=== PATIENT | female | born 2000 | race Caucasian/White ===

== ENCOUNTER 2023-01-06 15:46 | Outpatient (OUT) | payer BC, SELFPAY ==
[2023-01-06 16:07] LABS: Basophils Percent Auto 0.7 % (0.2-2.0); Eosinophils Absolute Auto 0.2 10^3/uL (0.0-0.7); Eosinophils Percent Auto 3.1 % (0.9-7.0); Hemoglobin 12.9 g/dL (12.0-16.0); Immature Granulocytes Abs Auto 0.03 10^3/uL (0.00-0.03); Immature Granulocytes Pct Auto 0.5 % (0.0-0.5); Lymphocytes Absolute Auto 2.7 10^3/uL (1.2-3.8); Lymphocytes Percent Auto 43.5 % (20.5-60.0); Mean Corpuscular HGB Conc 32.3 g/dL (29.9-35.2); Mean Corpuscular Hemoglobin 27.5 pg (26.7-34.0); Mean Corpuscular Volume 85.3 fL (81.0-99.0); Mean Platelet Volume 9.8 fL (9.5-13.5); Monocytes Absolute Auto 0.5 10^3/uL (0.3-0.8); Monocytes Percent Auto 8.3 % (1.7-12.0); Neutrophils Absolute Auto 2.7 10^3/uL (1.4-6.5); Neutrophils Percent Auto 43.9 % (43.0-75.0); Platelet Count 256 10^3/uL (150-450); Red Blood Count 4.69 10^6/uL (4.20-5.40); Red Cell Distribution Width 13.4 % (11.0-15.0); White Blood Count 6.1 10^3/uL (4.0-11.0)
[2023-01-06 16:13] LABS: Estimated Average Glucose 111 mg/dL; Glycohemoglobin A1C 5.5 % (4.5-6.2)
[2023-01-06 17:27] LABS: Alanine Aminotransferase 53 U/L (14-59); Albumin Globulin Ratio 0.9; Albumin Level 3.4 g/dL (3.4-5.0); Alkaline Phosphatase 67 U/L (46-116); Anion Gap 11.3; Aspartate Amino Transferase 36 U/L (15-37); BUN Creatinine Ratio 17.4; Bilirubin Direct 0.1 mg/dL (0.0-0.2); Bilirubin Total 0.4 mg/dL (0.2-1.0); Carbon Dioxide 29.3 mmol/L (21.0-32.0); Chloride 103 mmol/L (98-107); Chol HDL Ratio 4.1; Cholesterol 154 mg/dL (<=200); Estimated GFR (African America >60 (>=60); Estimated GFR (Non-African Ame >60 (>=60); Globulin 3.7 g/dL; Glucose 100 mg/dL (74-106); HDL Cholesterol 38 mg/dL (40-60); Potassium 3.6 mmol/L (3.5-5.1); Sodium 140 mmol/L (136-145); Total Protein 7.1 g/dL (6.4-8.2); Triglycerides 134 mg/dL (<=150); VLDL CHOLESTEROL 26.8 mg/dL
== END 2023-01-06 15:47 | disposition home or self-care (01) ==
LOC: LAB 15:51
PROVIDERS: PCP Family Medicine; Visit Provider Family Medicine
DX: Z00.00 Encounter for general adult medical examination without abnormal findings (principal)
CPT/HCPCS: 36415; 80048; 80061; 80076; 83036; 84443; 85025

== ENCOUNTER 2023-04-14 09:21 | Outpatient (OUT) | payer BC, SELFPAY ==
--- OUTSIDE RECORDS SUMMARY | 2023-04-14 09:25 | XMS_ITS | CCD ---
Author Name Unknown Address [facility] [address] [place] [id number] Organization [facility] Care Team Providers Care Commercial Installer Name Role Phone CORNELIO LEWIS Admitting Unavailable CORNELIO LEWIS Attending Unavailable DR ABBIE SINGLETON Primary Care Unavailable GARRETT MO Consulting Unavailable ABBIE SINGLETON Attending Unavailable Problems Problem Classification Problem Date Documented Da te Episodic/Chronic Other ear and sense organ disorders (3 sources) Otalgia, left ear; Translations: [OTALGIA LEFT EAR] Onset: 04-06-2022 Episodic Other upper respiratory infections (1 source) Acute upper respiratory infection, unspecified; Translations: [ACUTE UP RESPIRATORY INFECTION UNS] Onset: 04-08-2022 Episodic Otitis media and related conditions (1 source) Otitis media, unspecified, left ear; Translations: [OTITIS MEDIA UNSPECIFIED LEFT EAR] Onset: 04-08-2022 Episodic Encounters Encounter Date Encounter Type Care Provider Facility Start: 04-01-2023 End: 04-02-2023 ambulatory ABBIE SINGLETON Not Available Start: 04-06-2022 End: 04-06-2022 ambulatory CORNELIO CARLOS . Facility: Payers Date Payer Category Payer Unknown [id number] [id number] [id number] 1980 Unknown [id number] [id number] 1959 Unknown [id number] Summary Purpose Family History No Family History Records FoundNo Family History Records Found Advance Directives No Advanced Directives Records FoundNo Advanced Directives Records Found Additional Source Comments INFORMATION SOURCE (unrecogn ized section and content) DATE CREATED AUTHOR 04/08/2022 [facility] DATE CREATED AUTHOR 'S ORGANIZ ATION 04/05/2023 [facility] EPIC FOR RECORDS PERTAINING TO PATIENTS WHO ARE OR HAVE BEEN ENROLLED IN A CHEMICAL DEPENDENCY/SUBSTANCEABUSE PROGRAM, SOME INFORMATION MAY BE OMITTED. This clinical summary was aggregated from multiple sources. Caution should be exercised in using it in the provision of clinical care. This summary normalizes information from multiple sources, and as a consequence, information in this document may materially change the coding, format and clinical context of patient data. In addition, data may be omitted in some cases. CLINICAL DECISIONS SHOULD BE BASED ON THE PRIMARY CLINICAL RECORDS. [employer] [facility]. provides no warranty or guarantee of the accuracy or completeness of information in this document.
[2023-04-14 09:57] LABS: Basophils Absolute Auto 0.1 10^3/uL (0.0-0.1); Basophils Percent Auto 0.7 % (0.2-2.0); Eosinophils Absolute Auto 0.2 10^3/uL (0.0-0.7); Hematocrit 39.4 % (36.0-48.0); Hemoglobin 12.7 g/dL (12.0-16.0); Immature Granulocytes Abs Auto 0.03 10^3/uL (0.00-0.03); Immature Granulocytes Pct Auto 0.3 % (0.0-0.5); Lymphocytes Absolute Auto 3.5 10^3/uL (1.2-3.8); Lymphocytes Percent Auto 40.6 % (20.5-60.0); Mean Corpuscular HGB Conc 32.2 g/dL (29.9-35.2); Mean Corpuscular Hemoglobin 27.5 pg (26.7-34.0); Mean Corpuscular Volume 85.5 fL (81.0-99.0); Mean Platelet Volume 9.8 fL (9.5-13.5); Monocytes Absolute Auto 0.6 10^3/uL (0.3-0.8); Monocytes Percent Auto 6.3 % (1.7-12.0); Neutrophils Absolute Auto 4.4 10^3/uL (1.4-6.5); Neutrophils Percent Auto 50.1 % (43.0-75.0); Platelet Count 310 10^3/uL (150-450); Red Blood Count 4.61 10^6/uL (4.20-5.40); Red Cell Distribution Width 13.1 % (11.0-15.0); White Blood Count 8.7 10^3/uL (4.0-11.0)
[2023-04-14 10:31] LABS: Free T4 0.77 ng/dL (0.76-1.46)
[2023-04-14 10:36] LABS: Alanine Aminotransferase 44 U/L (14-59); Albumin Globulin Ratio 0.9; Albumin Level 3.5 g/dL (3.4-5.0); Alkaline Phosphatase 86 U/L (46-116); Anion Gap 14.6; Aspartate Amino Transferase 26 U/L (15-37); BUN Creatinine Ratio 16.5; Bilirubin Direct 0.1 mg/dL (0.0-0.2); Bilirubin Total 0.3 mg/dL (0.2-1.0); Calcium 8.8 mg/dL (8.5-10.1); Carbon Dioxide 27.8 mmol/L (21.0-32.0); Chloride 103 mmol/L (98-107); Estimated GFR (African America >60 (>=60); Estimated GFR (Non-African Ame >60 (>=60); Glucose 102 mg/dL (74-106); Potassium 3.4 mmol/L (3.5-5.1); Sodium 142 mmol/L (136-145); Thyroid Stimulating Hormone 9.006 uIU/mL (0.358-3.740); Total Protein 7.5 g/dL (6.4-8.2)
[2023-04-15 04:08] LABS: FSH 8.3 mIU/mL (.); Luteinizing Hormone(LH) 9.4 mIU/mL (.); Progesterone <0.1 ng/mL (.); Testosterone 4 ng/dL (13-71)
== END 2023-04-14 09:22 | disposition home or self-care (01) ==
LOC: LAB 09:23
PROVIDERS: PCP Family Medicine; Visit Provider Family Medicine
DX: F41.1 Generalized anxiety disorder (principal)
CPT/HCPCS: 36415; 80048; 80076; 82627; 82670; 83001; 83002; 83525; 84144; 84403; 84439; 84443; 84481; 85025

== ENCOUNTER 2023-06-30 07:48 | Outpatient (OUT) | payer BC, SELFPAY ==
--- OUTSIDE RECORDS SUMMARY | 2023-06-30 07:56 | XMS_ITS | CCD ---
Author Organization [facility] Care Team Providers Care Manager Fitness Name Role Phone CORNELIO LEWIS Admitting Unavailable CORNELIO LEWIS Attending Unavailable DR ABBIE SINGLETON Primary Care Unavailable GARRETT MO Consulting Unavailable ABBIE SINGLETON Attending Unavailable ABBIE SINGLETON Attending Unavailable Problems Problem [...] Date Encounter Type Care Provider Facility Start: 06-23-2023 End: 06-23-2023 ambulatory ABBIE SINGLETON Not Available Start: 04-01-2023 End: 04-02-2023 ambulatory ABBIE SINGLETON Not Available Start: 04-06-2022 End: 04-06-2022 ambulatory CORNELIO CARLOS . Facility: Payers Date Payer Category Payer Unknown [id number] [id number] [id number] 1980 Unknown [id number] [id number] 1980 Unknown [id number] [id number] 1959 Unknown [id number] Summary Purpose Family History No Family History Records FoundNo Family History Records Found Advance Directives No Advanced Directives Records FoundNo Advanced Directives Records Found Additional Source Comments INFORMATION SOURCE (unrecogn ized section and content) DATE CREATED AUTHOR 04/08/2022 [facility] DATE CREATED AUTHOR AUTHOR'S BAN CH 06/24/2023 [facility] FOR RECORDS PERTAINING TO PATIENTS WHO ARE [...] BE BASED ON THE PRIMARY CLINICAL RECORDS. [facility] [employer] provides no warranty or guarantee of the accuracy or completeness of information in this document.
[2023-06-30 08:48] LABS: Free T3 3.03 pg/mL (2.18-3.98); Thyroid Stimulating Hormone 3.274 uIU/mL (0.358-3.740)
[2023-06-30 09:09] LABS: Free T4 0.83 ng/dL (0.76-1.46)
== END 2023-06-30 07:49 | disposition home or self-care (01) ==
LOC: LAB 07:49
PROVIDERS: PCP Family Medicine; Visit Provider Family Medicine
DX: E03.9 Hypothyroidism, unspecified (principal)
CPT/HCPCS: 36415; 84439; 84443; 84481

== ENCOUNTER 2024-04-05 16:31 | Emergency (ER) | payer BC, SELFPAY ==
[2024-04-05 16:58] VITALS: BP 130/98; PULSE 116; TEMP 38.8; O2SAT 97; BMI 50.9
[2024-04-05] MEDS: IBUPROFEN 400 MG TABLET 800 MG PO (17:15)
--- NOTE | 2024-04-05 17:22 | ED_ITS ---
HPI HPI - General Adult General Chief complaint: Fever Stated complaint: FEVER Time Seen by Provider: 04/05/24 16:57 Source: patient Mode of arrival: walk-in Limitations: no limitations History of Present Illness HPI narrative: Patient presents to ED complaining of sore throat body aches fevers and chills. She has had a slight cough as well. She has a temperature of 102 here. She said around 4:00 she took some NyQuil but otherwise has not taken any medication. She is here with 2 other family members that are sick with similar symptoms. She said she started on Wednesday and was pretty bad on Wednesday could not really get out of bed. She said she had bodyaches and mild cough fevers chills and headaches. She said it started with a little sore throat but that has improved and the sore throat is not really affecting her anymore. No abdominal pain nausea or vomiting. No diarrhea. No hypoxia. Patient is mildly tachycardic and febrile on arrival. Alert and oriented answering questions appropriately. Related Data Allergies Allergy/AdvReac Type Severity Reaction Status Date / Time No Known Drug Allergies Allergy Verified 04/05/24 16:58 Opioid HPI Opioid Management Most Recent Opioid Data: No Data to Display Review of Systems ROS Status of ROS 10 or more systems reviewed and unremark able except as noted in history and below PFSH PFSH Social History Little interest or pleasure in doing things: not at all Feeling down, depressed, or hopeless: not at all Exam Narrative Exam Narrative: Time Seen: [] Vital Signs: [Per nurse's notes.] General: [Alert] Skin: [Warm, dry, no rash.] Head: [Normocephalic, atraumatic.] Neck: [Supple, trachea midline.] Eye: [Pupils are equal, round and reactive to light, extraocular movements are intact, normal conjunctiva.] Ears, nose, mouth and throat: oral mucosa moist. Mild posterior pharynx erythema Cardiovascular: [Tachycardia, no murmur.] Respiratory: [Lungs are clear to auscultation, respirations are non-labored, breath sounds are equal.] Chest wall: [No tenderness, no deformity.] Gastrointestinal: [Soft, nontender, non distended, normal bowel sounds.] MSK: 5 out of 5 muscle strength x 4 extremities no calf pain or edema Lymphatics: [No lymphadenopathy.] Psychiatric: [Cooperative, appropriate mood & affect.] Neurological: [Alert and oriented to person, place, time, and situation, no focal neurological deficit observed.] Constitutional Vital Signs, click to edit/add: Last Vital Signs Temp 102 F H 04/05/24 16:58 Pulse 116 H 04/05/24 16:58 Resp 18 04/05/24 16:58 BP 130/98 H 04/05/24 16:58 Pulse Ox 97 04/05/24 16:58 O2 Del Method Room Air 04/05/24 16:58 Course Vital Signs Vital signs: Vital Signs Temperature 102 F H 04/05/24 16:58 Pulse Rate 116 H 04/05/24 16:58 Respiratory Rate 18 04/05/24 16:58 Blood Pressure 130/98 H 04/05/24 16:58 Pulse Oximetry 97 04/05/24 16:58 Oxygen Delivery Method Room Air 04/05/24 16:58 Temperature 102 F H 04/05/24 16:58 Pulse Rate 116 H 04/05/24 16:58 Respiratory Rate 18 04/05/24 16:58 Blood Pressure 130/98 H 04/05/24 16:58 Pulse Oximetry 97 04/05/24 16:58 Oxygen Delivery Method Room Air 04/05/24 16:58 Medical Decision Making MDM Narrative Medical decision making narrative: Patient's labs are negative for acute. No flu no COVID. Patient works around others and needs time off work. She has a viral syndrome and the rest of her family also has the same viral syndrome. She is feeling slightly better than she was Wednesday so she should be able to return to work after this week. Return to ED if worsening symptoms otherwise follow-up with family doctor. Take Tylenol and Motrin for the fever and bodyaches. Patient comfortable with care plan for home Differential Diagnosis Differential Diagnosis: Viral syndrome flu COVID Lab Data Lab results reviewed: Yes I reviewed the patient's lab results Labs: Lab Results 04/05/24 Range/Units 17:05 Influenza Type A Ag Negative Influenza Type B Ag Negative SARS-CoV-2 Ag (CV2AG) Negative (NEGATIVE) Discharge Plan Discharge Chief Complaint: Fever Clinical Impression: Viral infection Patient Disposition: Home, Self-Care Time of Disposition Decision: 17:46 Condition: Good Mode of Transportation: Private Vehicle Print Language: Ivorian Instructions: Viral Syndrome (ED) Referrals: Nura Nava MD [Primary Care Provider] - 1 week
[2024-04-05 17:24] LABS: Influenza Virus A Antigen Negative; Influenza Virus B Antigen Negative; Internal Control Within Normal Limits; SARS-CoV-2 Ag NEGATIVE (NEGATIVE)
== END 2024-04-05 18:12 | disposition home or self-care (01) ==
PROVIDERS: Emergency Provider Emergency Medicine; PCP Family Medicine
DX: B34.9 Viral infection, unspecified (principal); R50.9 Fever, unspecified
CPT/HCPCS: 87804; 87811; 99283

== ENCOUNTER 2024-10-06 15:18 | Outpatient (OUT) | payer BC, SELFPAY ==
--- OUTSIDE RECORDS SUMMARY | 2024-10-06 15:22 | XMS_ITS | Encounter Summary ---
Author Organization [facility] Address [address] [place] [address] Care Team Providers Care Orchard Hand Name Role Phone Nura Nava MD Primary Care Provider [phone] Encounter Details Date Type Department Care Team (Late st Contact Info) Description 09/19/2024 Abstract [facility] [address] [place] [phone] Nura Nava MD [address] [place] [phone] Social History Tobacco Use Types Packs/Day Years Used Date Smoking Tobacco: Never Smokeless Tobacco: Never B1300 Health Literacy Answer Date Recor ded How often do you need to hav e someone help you when you read instructions, pamphlets, or other written material from your doctor or pharmacy? Never 09/19/2024 Humiliation, Afraid, Rape, and Kick questionnair e Answer Date Recorded Within the last year, have y ou been afraid of your partner or ex-partner? No 09/19/2024 Within the last year, have y ou been humiliated or emotionally abused in other ways by your partner or ex-partner? No Within the last year, have y ou been kicked, hit, slapped, or otherwise physically hurt by your partner or ex-partner? No 09/19/2024 Within the last year, have y ou been raped or forced to have any kind of sexual activity by your partner or ex-partner? No 09/19/2024 Social Connection and Isolation Panel [NHANES] A nswer Date Recorded In a typical week, how many times do you talk on the phone with family, friends, or neighbors? Twice a week 09/20/19 25 How often do you get togethe r with friends or relatives? Twice a week 09/19/2024 How often do you attend chur ch or jainism services? Never 09/19/2024 Do you belong to any clubs o r organizations such as rastafarian groups, unions, fraternal or athletic groups, or school groups? No 09/19/2024 How often do you attend meet ings of the clubs or organizations you belong to? Never 09/19/2024 Are you , , di vorced, , never , or living with a partner? Living with partner 09/19/2024 AUDIT-C Answer Date Recorded Q1: How often do you have a drink containing alc ohol? Monthly or less 09/19/2024 Q2: How many drinks containi ng alcohol do you have on a typical day when you are drinking? 3 or 4 09/19/2024 Q3: How often do you have si x or more drinks on one occasion? Never 09/19/2024 Overall Financial Resource Strain (CARDIA) Answe r Date Recorded How hard is it for you to pa y for the very basics like food, housing, medical care, and heating? Somewhat hard 09/19/2024 PHQ-2 Answer Date Recorded Patient Health Questionnaire-2 Score 0 04/01/2023 [facility]ational Stress Questionnaire Answer Date Recorded Do you feel stress - tense, restless, nervous, or anxious, or unable to sleep at night because your mind is troubled all the time - these days? Only a little 09/19/2024 Exercise Vital Sign Answer Date Recorde d On average, how many days pe r week do you engage in moderate to strenuous exercise (like a brisk walk)? 4 days 09/19/2024 On average, how many minutes do you engage in exercise at this level? 30 min 09/19/2024 Hunger Vital Sign Answer Date Recorded Within the past 12 months, y ou worried that your food would run out before you got the money to buy more. Never true 09/20/19 25 Within the past 12 months, t he food you bought just didn't last and you didn't have money to get more. Never true 09/19/2024 PRAPARE - Transportation Answer Date Re corded In the past 12 months, has l ack of transportation kept you from medical appointments or from getting medications? No 03/2024 In the past 12 months, has l ack of transportation kept you from meetings, work, or from getting things needed for daily living? No 09/19/2024 Housing Stability Vital Sign Answer Gilmer e Recorded In the last 12 months, was t here a time when you were not able to pay the mortgage or rent on time? No 09/19/2024 In the past 12 months, how m any times have you moved where you were living? 0 09/19/2024 At any time in the past 12 m [facility], were you homeless or living in a fpc (including now)? No 09/19/2024 Comments Unknown Sex and Gender Information Value Date Recorded Sex Assigned at Not on file Legal Sex Female 9:36 AM EDT Gender Identity Not on file Sexual Orientation Not on file documented as of this encounter Functional Status * Audit-C Score Answer Date of Assessment Author 2 09/19/2024 7:50 AM EDT Mychart, Generic * Q1: How often do you have a drink containing alcohol? Answer Date of Assessment Author Monthly or less 09/19/2024 7:50 AM EDT Mychart, Generic * Q2: How many drinks containing alcohol do you have on a typical day when you are drinking? Answer Date of Assessment Author 3 or 4 09/19/2024 7:50 AM EDT Mychart, Generic * Q3: How often do you have six or more drinks on one occasion? Answer Date of Assessment Author Never 09/19/2024 7:50 AM EDT Mychart, Generic documented as of this encounter Plan of Treatment Upcoming Encounters Date Type Department Care Team (Late st Contact Info) Description 12/21/2024 9:00 AM EDT Office Visit [facility] [address] [place] [address] Nura Nava MD [address] [place] [address] documented as of this encounter Visit Diagnoses Not on filedocumented in this encounter Care Teams Orchard Hand Relationship Specialty Start Date End Date Nura Nava MD [address] [place] [phone] PCP - General Family Medicine 12/02/22 documented as of this encounter
--- OUTSIDE RECORDS SUMMARY | 2024-10-06 15:22 | XMS_ITS | Encounter Summary ---
Author Organization [facility] Address [address] [place] [address] Care Team Providers Care Slitter Cut Off Operator Name Role Phone Nura Nava MD Primary Care Provider [phone] Reason for Visit * Reason Comments Med Refill Encounter Details Date Type Department Care Team (Late st Contact Info) Description 10/03/2024 [facility] [address] [place] [phone] Nura Nava MD [address] [place] [phone] Adult hypothyroidism Social History Tobacco Use Types Packs/Day Years [...] often do you attend chur ch or yazdanism services? Never 09/19/2024 Do you belong to any clubs o r organizations such as adventism groups, unions, fraternal or athletic groups, or [...] Recorded Patient Health Questionnaire-2 Score 0 04/01/2023 [facility] - Occupational Stress Questionnaire Answer [...] any time in the past 12 m [facility], were you homeless or living in a snf (including now)? No 09/19/2024 Comments Unknown Sex and Gender Information Value Date Recorded Sex Assigned at Not on file Legal Sex Female 9:36 AM EDT Gender Identity Not on file Sexual Orientation Not on file documented as of this encounter Miscellaneous Notes * Telephone Encounter - SON INTERIANO - 10/03/2024 3:43 PM EDT MEDICATION SENT TO PHAMACY documented in this encounter Plan of Treatment Upcoming Encounters Date Type Department Care Team (Late st Contact Info) Description 12/21/2024 9:00 AM EDT [facility] [address] [place] [address] Nura Nava MD [address] [place] [phone] documented as of this encounter Visit Diagnoses Diagnosis Adult hypothyroidism Unspecified hypothyroidism documented in this encounter Care Teams Slitter Cut Off Operator Relationship Specialty Start Date End Date Nura Nava MD [address] [place] [phone] PCP - General Family Medicine 12/02/22 documented as of this encounter
--- OUTSIDE RECORDS SUMMARY | 2024-10-06 15:22 | XMS_ITS | Clinical Summary ---
Author Organization [facility] Address [address] [facility] [place] [address] Care Team Providers Care Staff Development Coordinator Name Role Phone Nura Nava MD Primary Care Provider [phone] Allergies No known active allergies Medications naproxen (EC Naprosyn) 500 MG EC tablet Take 500 mg by mouth in the morning and 500 mg in the evening. Take with meals. Do not crush, chew, or split. . Active PARoxetine (Paxil) 30 MG tabletIndications: Generalized anxiety disorder TAKE 1 TABLET BY MOUTH IN THE MORNING 30 tablet 02/09/20 24 Active PARoxetine (Paxil) 30 MG tabletIndications: Generalized anxiety disorder Take 1 tablet by mouth once daily 60 tablet 09/09/19 25 Active Semaglutide-Weight Management (Wegovy) 0.25 MG/0.5ML solution auto-injectorIndic ations:Insulin resistance,Prediab etes,Class 3 severe obesity due to excess calories with serious comorbidity and body mass index (BMI) of 50.0 to 59.9 in adult ([facility]) Inject 0.25 mg under the skin 1 (one) time per week 2 mL 09/20/19 25 Active levothyroxine (Synthroid, Levoxyl) 50 MCG tabletIndications: Adult hypothyroidism TAKE 1 TABLET BY MOUTH ONCE DAILY IN THE MORNING BEFORE MEAL(S) 30 tablet 10/04/19 25 Active Tirzepatide (Mounjaro) 2.5 MG/0.5ML solution auto-injectorIndic ations:Morbid obesity ([facility]),Insulin resistance Inject 2.5 mg under the skin 1 (one) time per week 2 mL 3 01/04/20 24 025 Discontinued PARoxetine (Paxil) 30 MG tabletIndications: Generalized anxiety disorder Take 1 tablet by mouth once daily 60 tablet 07/08/19 25 025 Discontinued levothyroxine (Synthroid, Levoxyl) 50 MCG tabletIndications: Adult hypothyroidism TAKE 1 TABLET BY MOUTH ONCE DAILY IN THE MORNING BEFORE MEAL(S) 30 tablet 09/05/19 25 025 Discontinued Active Problems Problem Noted Date Diagnosed Date Near syncope 09/19/2024 Assessment & Plan (09/19/2024 12:15 PM EDT): Works in hot environment and increase fluids. Prediabetes 09/19/2024 Assessment & Plan (09/19/2024 12:15 PM EDT): Repeat labs. Class 3 severe obesity due t o excess calories with serious comorbidity and body mass index (BMI) of 50.0 to 59.9 in adult 06/23/2023 Assessment & Plan (09/19/2024 12:15 PM EDT): Try wegovy. Assessment & Plan (06/23/2023 8:36 AM EDT): Discussed proper diet and regular aerobic exercise. Recommend Weight Watchers and need to limit calories and smaller portions. Need to increase activity and regular aerobic exercise several days a week for 30 minutes at a time. Insulin resistance 06/23/2023 Assessment & Plan (09/19/2024 12:15 PM EDT): Repeat labs. Assessment & Plan (06/23/2023 8:36 AM EDT): Labs show insulin resistance and continues to gain weight. Start ozempic. If not covered can try metformin. Adult hypothyroidism 04/14/2023 Assessment & Plan (09/19/2024 12:15 PM EDT): Repeat labs. Assessment & Plan (06/23/2023 8:35 AM EDT): No signs of low thyroid and repeat labs. Carpal tunnel syndrome, bilateral 04/01/2023 Assessment & Plan (04/01/2023 9:48 AM EST): Minimal symptoms and use OTC PRN. If worsens resume braces. Generalized anxiety disorder 04/01/2023 Assessment & Plan (06/23/2023 8:35 AM EDT): Mood controlled with paxil and continue. Assessment & Plan (04/01/2023 9:48 AM EST): Mood controlled with paxil and continue. Amenorrhea 04/01/2023 Assessment & Plan (04/01/2023 9:48 AM EST): No period for months and likely PCOS. Check labs. Encounters Date Type Department Care Team Description 10/03/2024 Refill [facility] [address] [place] [address] Nura Nava MD Adult hypothyroidism 09/19/2024 11:45 AM EDT Office Visit [facility] [address] [place] [address] Nura Nava MD Near syncope (Primary Dx); Insulin resistance; Prediabetes; Class 3 severe obesity due to excess calories with serious comorbidity and body mass index (BMI) of 50.0 to 59.9 in adult ([facility]); Adult hypothyroidism 09/19/2024 Abstract [facility] [address] [place] [address] Nura Nava MD 09/19/2024 Bamboo flowsheet [facility] [address] [place] [address] Nura Nava MD 09/19/2024 Travel 09/08/2024 Refill [facility] [address] [place] [address] Nura Nava MD Generalized anxiety disorder 09/04/2024 Refill [facility] [address] [place] [phone] Nura Nava MD Adult hypothyroidism 08/05/2024 Refill [facility] [address] [place] [phone] Nura Nava MD Adult hypothyroidism 07/07/2024 Refill [facility] [address] [place] [address] Nura Nava MD Generalized anxiety disorder from Last 3 Months Family History Medical History Relation Name Comments No Known Problems Father Coronary artery disease Mother Diabetes Mother Heart failure Mother Hypertension Mother Relation Name Status Comments Father Mother Social History Tobacco Use Types Packs/Day Years Used Date Smoking Tobacco: Never Smokeless Tobacco: Never Tobacco Cessation:Counseling Given: Not Answered B1300 Health Literacy Answer Date Recor ded [...] friends, or neighbors? Twice a week 09/20/19 How often do you get togethe r with friends or relatives? Twice a week 09/19/2024 How often do you attend chur or pentecostal services? Never 09/19/2024 Do you belong to any clubs o r organizations such as yazidi groups, unions, fraternal or athletic groups, or [...] Recorded Patient Health Questionnaire-2 Score 0 04/01/2023 [facility] - Occupational Stress Questionnaire Answer Date Recorded [...] any time in the past 12 m [facility], were you homeless or living in a fci (including now)? No 09/19/2024 Comments Unknown Sex and Gender Information Value Date Recorded Sex Assigned at Not on file Legal Sex Female 9:36 AM EDT Gender Identity Not on file Sexual Orientation Not on file Last Filed Vital Signs Vital Sign Reading Time Taken Comments Blood Pressure 124/68 09/19/2024 11:53 AM EDT Pulse 90 09/19/2024 11:53 AM EDT Temperature 36.2 C (97.1 F) 09/19/2024 11:53 AM EDT Respiratory Rate 20 09/19/2024 11:53 AM EDT Oxygen Saturation 99% 09/19/2024 11:53 AM EDT Inhaled Oxygen Concentration - - Weight 164 kg (362 lb) 09/19/2024 11:53 AM EDT Height 175.3 cm (5' 9 ) 09/19/2024 11:53 AM EDT Body Mass Index 53.46 09/19/2024 11:53 AM EDT Plan of Treatment Upcoming Encounters Date Type Department Care Team (Late st Contact Info) Description 12/21/2024 9:00 AM EDT Office Visit [facility] [address] [place] [address] Nura Nava MD [address] [place] [address] Health Maintenance Due Date Last Done Comments Influenza Vaccine (#1) 2024 Insurance BCBS BCBS Care Teams Staff Development Coordinator Relationship Specialty Start Date End Date Nura Nava MD [address] [place] [address] PCP - General Family Medicine 12/02/22
--- OUTSIDE RECORDS SUMMARY | 2024-10-06 15:24 | XMS_ITS | CCD ---
Author Organization [facility] Care Team Providers Care Accounts Receivable Assistant Name Role Phone CORNELIO LEWIS Admitting Unavailable CORNELIO LEWIS Attending Unavailable MANI, DR NURA Hutson Primary Care Unavailable GARRETT MO Consulting Unavailable NURA SINGLETON Referring Unavailable NURA SINGLETON Primary Care Unavailable KIA GONZALEZ Referring Unavailable NURA SINGLETON Primary Care Unavailable KIA GONZALEZ Attending Unavailable KIA GONZALEZ Referring Unavailable NURA SINGLETON Primary Care Unavailable KIA GONZALEZ Referring Unavailable NURA SINGLETON Primary Care Unavailable NURA SINGLETON Primary Care Unavailable JOSE BISHOP Attending Unavailable Nura Singleton MD Primary Care Provider [phone] NURA SINGLETON Attending Unavailable Allergies Allergy Classification Reported Allergen(s) Allergy Type Date of Onset Reaction(s) Facility (2 sources) POISON MARLA EXTRACT; Translations: [POISON MARLA EXTRACT] Propensity to adverse reactions to drug (disorder) 9 [facility] Medications Current Medications Medication Drug Class(es) Dates Sig (Normalized) Sig (Original) levothyroxine sodium 0.05 mg oral tablet (3 sources) l-Thyroxine Start: 09-04-2024 take 1 tablet by mouth once daily before mealtime levothyroxine (Synthroid, Levoxyl) 50 MCG tablet Indications: Adult hypothyroidism TAKE 1 TABLET BY MOUTH ONCE DAILY IN THE MORNING BEFORE MEAL(S) 30 tablet 09/04/2024 Active naproxen 500 mg delayed release oral tablet (3 sources) Nonsteroidal Anti-inflammatory Drug take 1 tablet by mouth in the morning naproxen (EC Naprosyn) 500 MG EC tablet Take 500 mg by mouth in the morning and 500 mg in the evening. Take with meals. Do not crush, chew, or split. . Active PARoxetine hydrochloride 30 mg oral tablet (6 sources) Serotonin Reuptake Inhibitor Start: 02-09-2024 take 1 tablet by mouth once daily PARoxetine (Paxil) 30 MG tablet Indications: Generalized anxiety disorder Take 1 tablet by mouth once daily 60 tablet 09/08/2024 Active Semaglutide-Weight Management (Wegovy) 0.25 MG/0.5ML solution auto-injector (2 sources) Start: 09-19-2024 Semaglutide-Weight Management (Wegovy) 0.25 MG/0.5ML solution auto-injector Indications: Insulin resistance , Prediabetes , Class 3 severe obesity due to excess calories with serious comorbidity and body mass index (BMI) of 50.0 to 59.9 in adult ([facility]) Inject 0.25 mg under the skin 1 (one) time per week 2 mL 09/19/2024 Active Tirzepatide (Mounjaro) 2.5 MG/0.5ML solution auto-injector (3 sources) Start: 01-04-2024 End: 09-19-2024 inject 2.5 mg by subcutaneous injection every week Tirzepatide (Mounjaro) 2.5 MG/0.5ML solution auto-injector Indications: Morbid obesity ([facility]) , Insulin resistance Inject 2.5 mg under the skin 1 (one) time per week 2 mL 3 01/04/2024 09/19/2024 Discontinued Start: 01-04-2024 inject 2.5 mg by sub cutaneous injection every week Tirzepatide (Mounjaro) 2.5 MG/0.5ML solution auto-injector Indications: Morbid obesity ([facility]) , Insulin resistance Inject 2.5 mg under the skin 1 (one) time per week 2 mL 3 01/04/2024 Active Problems Active Problems Problem Classification Problem Date Documented Da te Episodic/Chronic Anxiety disorders (3 sources) Generalized anxiety disorder; Translations: [Generalized anxiety disorder] Onset: 04-01-2023 04-01-2023 Chronic Diabetes mellitus without complication (6 sources) Prediabetes; Translations: [Prediabetes] Onset: 09-19-2024 09-19-2024 Episodic Headache; including migraine (1 source) Headache; including migraine Onset: 08-30-2024 Menstrual disorders (5 sources) Amenorrhea, unspecified; Translations: [Amenorrhea] Onset: 04-01-2023 04-01-2023 Chronic Nonspecific chest pain (2 sources) Chest pain, unspecified; Translations: [Chest pain] Onset: 08-30-2024 Episodic Other ear and sense organ disorders (3 sources) Otalgia, left ear; Translations: [OTALGIA LEFT EAR] Onset: 04-06-2022 Episodic Other nervous system disorders (3 sources) Bilateral carpal tunnel syndrome; Translations: [Carpal tunnel syndrome, bilateral upper limbs] Onset: 04-01-2023 04-01-2023 Chronic Other nutritional; endocrine; and metabolic disorders (1 source) Morbid obesity; Translations: [Morbid (severe) obesity due to excess calories] Onset: 06-23-2023 06-23-2023 Chronic Other nutritional; endocrine; and metabolic disorders (7 sources) Insulin resistance; Translations: [Insulin resistance] Onset: 06-23-2023 06-23-2023 Chronic Other nutritional; endocrine; and metabolic disorders (6 sources) Severe obesity; Translations: [Class 3 severe obesity due to excess calories with serious comorbidity and body mass index (BMI) of 50.0 to 59.9 in adult ([facility])] Onset: 06-23-2023 09-19-2024 Chronic Other upper respiratory infections (1 source) Acute upper respiratory infection, unspecified; Translations: [ACUTE UP RESPIRATORY INFECTION UNS] Onset: 04-08-2022 Episodic Otitis media and related conditions (1 source) Otitis media, unspecified, left ear; Translations: [OTITIS MEDIA UNSPECIFIED LEFT EAR] Onset: 04-08-2022 Episodic Screening and history of mental health and substance abuse codes (1 source) Encounter for screening for depression; Translations: [Encounter for screening for depression] Onset: 02-16-2024 Episodic Syncope (5 sources) Syncope and collapse; Translations: [Near syncope] Onset: 08-30-2024 09-19-2024 Episodic Thyroid disorders (5 sources) Hypothyroidism; Translations: [Hypothyroidism, unspecified] Onset: 04-14-2023 04-14-2023 Chronic Unclassified (1 source) Gynecologic Exam Onset: 02-16-2024 Past or Other Problems Problem Classification Problem Date Documented Da te Episodic/Chronic Other screening for suspected conditions (not mental disorders or infectious disease) (2 sources) Encounter for screening for malignant neoplasm of cervix; Translations: [Encounter for screening for malignant neoplasm of cervix] Onset: 02-16-2024 Episodic Results Test Name Value Interpretation Reference Range Facil ity CBC WITH AUTO DIFFERENTIALon 08-30-2024 BASOPHILS ABSOLUTE COUNT (10*3/UL) BY AUTOMATED COUNT 0.1 10*3/uL Normal 0.0-0.2 [facility] Comment on above: Performed By: #### C BCA #### [facility] ([address] [address] VIR BASOPHILS RELATIVE PERCENT BY AUTOMATED COUNT 0.6 % Normal [facility] Comment on above: Performed By: #### C BCA #### [address] [address] VIR CELLAVISION DIFFERENTIAL TYPE AUTOMATED DIFFERENTIAL Normal [facility] Comment on above: Performed By: #### C BCA #### [facility] ([address] [address] VIR Eosinophils (Bld) [#/Vol] 0.2 10*3/uL Normal 0.0-0.4 [facility] Comment on above: Performed By: #### C BCA #### [address] [address] VIR EOSINOPHILS RELATIVE PERCENT BY AUTOMATED COUNT 2.1 % Normal [facility] Comment on above: Performed By: #### C BCA #### [facility] ([address] [address] VIR Erythrocyte distribution width (RBC) [Ratio] 15.4 % High 11.5-15 [facility] Comment on above: Performed By: #### C BCA #### [facility] ([address] [address] VIR Hematocrit (Bld) [Volume fraction] 38.2 % Normal 35-47 [facility] Comment on above: Performed By: #### C BCA #### [facility] ([address] [address] VIR Hemoglobin (Bld) [Mass/Vol] 12.9 g/dL Normal 11.7-15.5 [facility] Comment on above: Performed By: #### C BCA #### [address] [address] VIR LYMPHOCYTES ABSOLUTE COUNT (10*3/UL) BY AUTOMATED COUNT 2.6 10*3/uL Normal 1.0-3.5 [facility] Comment on above: Performed By: #### C BCA #### [address] [address] VIR LYMPHOCYTES RELATIVE PERCENT BY AUTOMATED COUNT 29.7 % Normal [facility] Comment on above: Performed By: #### C BCA #### [address] [address] VIR MCH (RBC) [Entitic mass] 27.2 pg Normal 27-34 [facility] Comment on above: Performed By: #### C BCA #### [address] [address] VIR MCHC (RBC) [Mass/Vol] 33.8 g/dL Normal 32-36 [facility] Comment on above: Performed By: #### C BCA #### [address] [address] VIR MCV (RBC) [Entitic vol] 80 fL Normal 80-100 [facility] Comment on above: Performed By: #### C BCA #### [address] [address] VIR MONOCYTES ABSOLUTE COUNT (10*3/UL) BY AUTOMATED COUNT 0.6 10*3/uL Normal 0.0-0.9 [facility] Comment on above: Performed By: #### C BCA #### [facility] ([address] [place] [address] VIR MONOCYTES RELATIVE PERCENT BY AUTOMATED COUNT 6.3 % Normal [facility] Comment on above: Performed By: #### C BCA #### [facility] ([facility]) [address] [place], [place] [address]. [place] [address] VIR NEUTROPHILS ABSOLUTE COUNT BY AUTOMATED COUNT 5.5 10*3/uL Normal 1.5-6.6 [facility] Comment on above: Performed By: #### C BCA #### [facility] ([address] [place] [address] VIR NEUTROPHILS RELATIVE PERCENT BY AUTOMATED COUNT 61.3 % Normal [facility] Comment on above: Performed By: #### C BCA #### [facility] ([address] [place] [address] VIR Platelet mean volume (Bld) [Entitic vol] 8.6 fL Normal 7-12 [facility] Comment on above: Performed By: #### C BCA #### [facility] ([address] [place] [address] VIR Platelets (Bld) [#/Vol] 306 10*3/uL Normal 150-450 [facility] Comment on above: Performed By: #### C BCA #### [facility] ([address] [place] [address] VIR RBC COUNT 4.75 X10E12/L Normal 3.8-5.2 [facility] Comment on above: Performed By: #### C BCA #### [facility] ([address] [place] [address] VIR WBC (Bld) [#/Vol] 8.9 10*3/uL Normal 4-11 [facility] Comment on above: Performed By: #### C BCA #### [facility] ([address] [place] [address] VIR COMPREHENSIVE METABOLIC PANE Don 06-11-2025 Albumin [Mass/Vol] 4.0 g/dL Normal 3.2-5.3 [facility] Comment on above: Performed By: #### C MP #### [facility] ([facility]) [address] [place] [address] VIR ALP [Catalytic activity/Vol] 71 U/L Normal 39-130 [facility] Comment on above: Performed By: #### C MP #### [facility] ([place] [address] [place] [address] VIR ALT [Catalytic activity/Vol] 54 U/L High <=31 [facility] Comment on above: Performed By: #### C MP #### [facility] ([place] [address] [place] [address] VIR Anion gap [Moles/Vol] 7 mmol/L Normal 5-15 [facility] Comment on above: Performed By: #### C MP #### [facility] ([place] [address] [place] [address] VIR AST [Catalytic activity/Vol] 43 U/L High <=41 [facility] Comment on above: Performed By: #### C MP #### [facility] ([place] [address] [place] [address] VIR Bilirubin [Mass/Vol] 0.1 mg/dL Low 0.3-1.2 [facility] Comment on above: Performed By: #### C MP #### [facility] ([place] [address] [place] [address] VIR Calcium [Mass/Vol] 9.2 mg/dL Normal 8.5-10.5 [facility] Comment on above: Performed By: #### C MP #### [facility] ([place] [address] [place] [address] VIR Chloride [Moles/Vol] 105 mmol/L Normal 98-109 [facility] Comment on above: Performed By: #### C MP #### [facility] ([address] [place] [address] VIR CO2 [Moles/Vol] 27 mmol/L Normal 22-32 [facility] Comment on above: Performed By: #### C MP #### [facility] ([address] [place] [address] VIR Creatinine [Mass/Vol] 0.72 mg/dL Normal 0.40-1.00 [facility] Comment on above: Result Comment: METH OD TRACEABLE TO IDMS STANDARD Performed By: #### C MP #### [facility] ([address] [address] VIR EGFR (CKD-EPI) NON-RACE DEPENDENT >^90 Normal >=60 [facility] Comment on above: Result Comment: eGFR not reported due to non-numeric value for Creatinine. Reported eGFR is based on the CKD-EPI 2021 equation that does not use a race coefficient. Performed By: #### C MP #### [facility] ([address] [address] VIR Glucose [Mass/Vol] 121 mg/dL High 65-99 [facility] Comment on above: Performed By: #### C MP #### [facility] ([address] [place] [address] VIR Potassium [Moles/Vol] 3.6 mmol/L Normal 3.5-5.0 [facility] Comment on above: Performed By: #### C MP #### [facility] ([address] [place] [address] VIR Protein [Mass/Vol] 7.4 g/dL Normal 6.0-8.0 [facility] Comment on above: Performed By: #### C MP #### [facility] ([address] [place] [address] VIR Sodium [Moles/Vol] 139 mmol/L Normal 134-146 [facility] Comment on above: Performed By: #### C MP #### [facility] ([facility]) [address] [place] [address] VIR Urea nitrogen [Mass/Vol] 16 mg/dL Normal 5-23 [facility] Comment on above: Performed By: #### C MP #### [facility] ([facility]) [address] [place] [address] BRAIN WO CONTon CT BRAIN WO CONT CT BRAIN WO CONT STUDY: CT BRAIN WO CONT INDICATION: new onset headache, near syncope, dizziness. TECHNIQUE: * CT head was performed without intravenous contrast using the standard protocol. Automated exposure control was utilized. * All CT scans at this facility use dose modulation, iterative reconstruction, and/or weight based dosing when appropriate to reduce radiation dose to as low as reasonably achievable. COMPARISON: None FINDINGS: No evidence of acute intracranial hemorrhage, territorial infarct, mass effect, midline shift, or extra-axial fluid collection. Ventricles, sulci and cistern are unremarkable. Brain volume is age appropriate. Cortez-white differentiation is preserved. Orbits and globes appear unremarkable. Soft tissues are unremarkable. Moderate polypoid mucosal thickening in the right maxillary sinus. Mastoid air cells are broadly clear. No evidence of aggressive osseous lesion. IMPRESSION: * No acute intracranial abnormality, by CT. Approved by Resident Junior Marsh MD on 08/30/2024 1:03 AM Ike Hayes MD have personally reviewed the image(s) and agree with and/or edited the report Finalized by Ike Arevalo MD on 08/30/2024 1:08 AM Normal [facility] POCT NURSING URINE MACROSCOP IC UAon 08-30-2024 BILIRUBIN SYLVESTER Negative Normal Negative [facility] Comment on above: Performed By: #### 2 842-3, 2243-4, 46616-0 #### [facility] ([id number]) [address], [address] [place] [address] BLOOD/HGB SYLVESTER Trace Abnormal Negative [facility] Comment on above: Performed By: #### 2 842-3, 3-4, 36338-5 #### [facility] ([id number]) [address], [address] [place] [address] GLUCOSE SYLVESTER Negative Normal Negative [facility] Comment on above: Performed By: #### 2 842-3, 2242-4, 22167-2 #### [facility] ([id number]) [address], [address] [place] [address] KETONES SYLVESTER Negative Normal Negative [facility] Comment on above: Performed By: #### 2 842-3, 2242-4, 91844-2 #### [facility] ([id number]) [address], [address] [place] [address] LEUKOCYTE ESTERASE SYLVESTER Negative Normal Negative [facility] Comment on above: Performed By: #### 2 842-3, 2242-4, 45265-8 #### [facility] ([id number]) [address], [address] [place] [address] NITRITE SYLVESTER Negative Normal Negative [facility] Comment on above: Performed By: #### 2 842-3, 2242-4, 55666-2 #### [facility] ([id number]) [address], [address] [place] [address] PH SYLVESTER 6.0 Normal 5.0, 6.0, 6.5, 7.0, 7.5, 8.0, 8.5, 5.5 [facility] Comment on above: Performed By: #### 2 842-3, 2242-4, 41834-1 #### [facility] ([id number]) [address], [address] [place] [address] PROTEIN SYLVESTER Negative Normal Negative [facility] Comment on above: Performed By: #### 2 842-3, 2243-4, 68070-7 #### [facility] ([id number]) [address], [address] [place] [address] SPECIFIC GRAVITY SYLVESTER 1.025 Normal 1.010, 1.015, 1.020, 1.025 [facility] Comment on above: Performed By: #### 2 842-3, 2243-4, 71378-5 #### [facility] ([id number]) [address], [address] [place] [address] UROBILINOGEN SYLVESTER 0.2 E.U./dL Normal [facility] Comment on above: Performed By: #### 2 842-3, 2242-4, 27359-4 #### [facility] ([id number]) [address] [facility] [address] [place] [address] POCT , URINE (NUCG) on 08-30-2024 Beta HCG ( test) Ql (U) Negative Normal Negative, Indeterminate [facility] Comment on above: Performed By: #### 2 842-3, 3-4, 23663-0 #### [facility] ([id number]) [address] [facility] [address] [place] [address] THYROID PROFILE INCLUDES TSH FT4on 08-30-2024 Free T4 [Mass/Vol] 0.79 ng/dL Normal 0.61-1.60 [facility] Comment on above: Performed By: #### 2 842-3, 3-4, 48734-6 #### [facility] ([id number]) [address], [address] [place] [address] TSH 2.29 uIU/mL Normal 0.49-4.67 [facility] Comment on above: Performed By: #### 2 842-3, 2243-4, 31481-9 #### [facility] ([id number]) [address], [address] [place] [address] TROPONIN I, HIGH SENSITIVITY 0 HOURon 08-30-2024 TROPONIN I, HIGH SENSITIVITY <^2 Normal <16 [facility] Comment on above: Performed By: #### T NIHS0 #### [facility] ([facility]) [address] [place] [address] VIR XR CHEST 1 VWon 08-30-2024 XR CHEST 1 VW XR CHEST 1 VW HISTORY: Chest pain, near syncope COMPARISON: Chest x-ray 03/05/2020 FINDINGS: PA view of the chest was performed. Heart size is normal. Lungs demonstrate no significant airspace consolidation or vascular congestion. There is no pneumothorax or pleural effusion. IMPRESSION: * No acute abnormality. Finalized by Leandro Dominguez MD on 08/30/2024 12:59 AM Normal [facility] E2 [Mass/Vol]on 02-23-2024 ESTRADIOL 58.9 pg/mL Normal [facility] Comment on above: Result Comment: NON- FEMALES Mid follicular: 25-115 pg/mL Ovulatory Peak: 32.1-517 pg/mL Mid Luteal: 36.5-246 pg/mL Post-Menopausal Females: <15.0-25.1 pg/mL (Not on hormone therapy) The Access Sensitive Estradiol assay results are not intended to be used to measure the effectiveness of exogeneous Estradiol supplementation, for example, when the patient is on hormone replacement therapy. The presence of estradiol drug analogues and their metabolites could have an impact on estradiol recovery when using this assay. Performed By: #### 2 842-3, 2243-4, 21730-9 #### [facility] ([id number]) [address], [address] [place] [address] Follitropin Qnon 02-23-2024 FOLLICLE STIM HORMONE 7.7 mIU/mL Normal [facility] Comment on above: Result Comment: NORMAL FEMALE Luteal 1.8-5.1 mIU/mL Follicular 3.8-8.8 mIU/mL Mid Cycle 4.5-22.5 mIU/mL Post Elizabeth 16.7-113.6 mIU/mL Performed By: #### 2 842-3, 2243-4, 07813-7 #### [facility] ([id number]) [address], [address] [place] [address] Prolactin [Mass/Vol]on 02-22 PROLACTIN 19.7 ng/mL Normal 3.3-26.7 [facility] Comment on above: Performed By: #### 2 842-3, 2243-4, 09531-6 #### [facility] ([id number]) [address] [place] [address] US PELVIC WITH TRANSVAGINALo n 02-23-2024 US PELVIC WITH TRANSVAGINAL US PELVIC WITH TRANSVAGINAL US PELVIC WITH TRANSVAGINAL HISTORY: Amenorrhea COMPARISON: None TECHNIQUE: Transabdominal and transvaginal sonographic evaluation of the pelvis. Transabdominal imaging performed to evaluate for extra adnexal pelvic pathology. Transvaginal imaging performed for better delineation of the adnexal and endometrial contents. Color Doppler used. FINDINGS: Suboptimal evaluation due to patient body habitus. Uterus: 5.8 x 3.8 x 4.4 cm Endometrial Thickness: 0.7 cm Right Ovary: 2.0 x 1.3 x 1.6 cm Left Ovary: 2.8 x 1.7 x 2.0 cm The uterus demonstrates appropriate size and echo pattern, to limits of this exam. The endometrium is unremarkable. Benign nabothian cyst. The ovaries are unremarkable. No adnexal masses demonstrated. No free fluid. IMPRESSION: Unremarkable sonographic evaluation of the pelvis, limited exam. Approved by Yakelin Peres DO on 02/23/2024 8:40 AM Elías Hayes MD have personally reviewed the image(s) and agree with and/or edited the report Finalized by Elías Gabriel MD on 02/23/2024 8:51 AM Normal [facility] Cytologyon 02-16-2024 Cytology Normal [facility] Comment on above: Result Comment: [facility] [address] [place] [address] Gynecologic Cytology Consultation Patient Name:KARMA LOZOYA:2000 (Age: 23)Gender:FTaken:02/16/2024eported:03/04/2024hysician(s):Kia Joyner APRN-[facility] ([phone])Copy To: Rec. #:[id number]: #[id number] Final Cytologic Interpretation ThinPrep Pap Test (Cervical): Satisfactory for evaluation. A transformation zone component is not identified via imaging-assisted review, using [email or web address] Prep Imaging System, within 22 microscopic romero of view. NEGATIVE FOR INTRAEPITHELIAL LESION OR MALIGNANCY. 03/04/2024 Interpretation performed at [facility] [place] [address], License number: [id number]. Electronically Signed Out By BRADLEY Cain (ASCP) Date of Last Menstrual Period: 02/11/24 Other Clinical Conditions: Z12.4 Screening for malignant neoplasm of cervix Abnormal Bleeding Source of Specimen ThinPrep Pap Test (Cervical) Thin Prep Pap (CARPET CUTTER) Fee Code(s): G0145 The Pap test is a screening test with an inherent, but low, probability of error. The Pap test is primarily effective for the diagnosis and prevention of squamous cell carcinoma. Regular screening is critical for prevention. ThinPrep liquid-based slides, which meet the Space Control Agent criteria for automated screening, have been screened by the QwbcgPrep Imaging System (as of 12/06/06) along with an additional manual rescreening by a accounts receivable administrator and, if indicated, by a pathologist. Vital Signs Date Time Vital Sign Value Performing Clinician Faci lity 09-19-2024 11:53-0400 Body height 175.3 cm Nura Singleton MD Work Phone: [facility] 09-19-2024 11:53-0400 Body mass index (BMI) [Ratio] 53.46 kg/m2 Nura Singleton MD Work Phone: [facility] 09-19-2024 11:53-0400 Body temperature 97.11 [degF] Nura Singleton MD Work Phone: [facility] 09-19-2024 11:53-0400 Body weight 164.2 kg Nura Singleton MD Work Phone: [facility] 09-19-2024 11:53-0400 Diastolic blood pressure 68 mm[Hg] Nura Singleton MD Work Phone: [facility] 09-19-2024 11:53-0400 Heart rate 90 /min Nura Singleton MD Work Phone: [facility] 09-19-2024 11:53-0400 Respiratory rate 20 /min Nura Singleton MD Work Phone: [facility] 09-19-2024 11:53-0400 SaO2% (BldA) [Mass fraction] 99 % Nura Singleton MD Work Phone: [facility] 09-19-2024 11:53-0400 Systolic blood pressure 124 mm[Hg] Nura Singleton MD Work Phone: [facility] Healthcare Encounters Encounter Date Encounter Type Care Provider Facility Start: 09-19-2024 End: 09-19-2024 Bamboo flowsheet Nura Singleton MD Work Phone: [facility] Start: 09-19-2024 End: 09-19-2024 Bamboo flowsheet Nura Singleton MD Work Phone: [facility] Start: 09-19-2024 End: 09-19-2024 Office outpatient visit 25 minutes Nura Singleton MD Work Phone: [facility] Comment on above: Near syncope (Primar y Dx); Insulin resistance; Prediabetes; Class 3 severe obesity due to excess calories with serious comorbidity and body mass index (BMI) of 50.0 to 59.9 in adult ([facility]); Adult hypothyroidism Start: 09-19-2024 End: 09-19-2024 ambulatory NURA SINGLETON Not Available Start: 08-30-2024 End: 08-30-2024 Emergency department patient visit [facility] Start: 02-23-2024 End: 02-23-2024 ambulatory [facility] Start: 02-16-2024 End: 02-16-2024 ambulatory [facility] Start: 02-16-2024 Encounter for gynecological examination (general) (routine) without abnormal findings [facility] Start: 02-16-2024 End: 02-16-2024 ambulatory [facility] Start: 04-06-2022 End: 04-06-2022 ambulatory CORNELIO CARLOS . Facility: Plan of Treatment Date Care Activity Detail Author Start: 12-21-2024 End: 12-21-2024 Patient encounter procedure 12/21/2024 9:00 AM EDT Office Visit [facility] [address] [place] [phone] Nura Singleton MD [address] [place] [phone] [facility] Start: 11-20-2024 Influenza vaccination Influenza Vacc ine (#1) [facility] Start: 09-19-2024 End: 09-19-2025 Basic metabolic 1998 panel - Serum or Plasma Basic metabolic panel Lab Routine Prediabetes Expected: 09/19/2024 (Approximate), Expires: 09/19/2025 [facility] Comment on above: Expected: 09/19/2024 (Approximate), Expires: 09/19/2025 Start: 09-19-2024 End: 09-19-2025 Hemoglobin A1c/Hemoglobin.total in Blood Hemoglobin A1c Lab Routine Prediabetes Expected: 09/19/2024 (Approximate), Expires: 09/19/2025 [facility] Comment on above: Expected: 09/19/2024 (Approximate), Expires: 09/19/2025 Start: 09-19-2024 End: 09-19-2025 Insulin, fasting Insulin, fasting Lab Routine Insulin resistance Expected: 09/19/2024 (Approximate), Expires: 09/19/2025 [facility] Work Phone: Comment on above: Expected: 09/19/2024 (Approximate), Expires: 09/19/2025 Start: 09-19-2024 End: 09-19-2025 Thyrotropin [Units/volume] in Serum or Plasma TSH Lab Routine Adult hypothyroidism Expected: 09/19/2024 (Approximate), Expires: 09/19/2025 [facility] Comment on above: Expected: 09/19/2024 (Approximate), Expires: 09/19/2025 Start: 09-19-2024 End: 09-19-2025 Thyroxine (T4) free [Mass/volume] in Serum or Plasma T4, free Lab Routine Adult hypothyroidism Expected: 09/19/2024 (Approximate), Expires: 09/19/2025 [facility] Comment on above: Expected: 09/19/2024 (Approximate), Expires: 09/19/2025 Start: 09-19-2024 End: 09-19-2024 Patient encounter procedure 09/19/2024 11:45 AM EDT Office Visit [facility] [address] [place] [phone] Nura Singleton MD [address] [place] [phone] Arrived [facility] Comment on above: Arrived Payers Date Payer Category Payer [facility] [employer]BS [id number] 2001 Unknown [id number] 2001 Unknown [id number] 2001 Unknown [id number] 2001 Unknown [id number] 2001 Unknown [id number] 2001 Unknown [id number] 2001 Unknown [id number] 1959 Unknown [id number] Social History Date Type Detail Facility Start: 04-01-2023 Tobacco smoking status OKIS Never sm oked tobacco [facility] Start: 04-01-2023 Tobacco use and exposure Smoke less tobacco non-user [facility] Start: 04-01-2023 End: 09-19-2024 History of Social function [facility] Start: 04-01-2023 End: 09-19-2024 B1300 Health Literacy [facility] How often do you nee d to have someone help you when you read instructions, pamphlets, or other written material from your doctor or pharmacy [SILS] Never [facility] Within the last year , have you been afraid of your partner or ex-partner? No [facility] Are you now , , , , never or living with a partner? Living with partner [facility] How often to you hav e a drink containing alcohol? Monthly or less [facility] How many standard dr inks containing alcohol do you have on a typical day? 3 or 4 [facility] How hard is it for y ou to pay for the very basics like food, housing, medical care, and heating Somewhat hard [facility] Do you feel stress - tense, restless, nervous, or anxious, or unable to sleep at night because your mind is troubled all the time - these days [OSQ] Only a little [facility] (I/We) worried wheth er (my/our) food would run out before (I/we) got money to buy more. Never true [facility] In the past 12 month s, has lack of transportation kept you from medical appointments or from getting medications? No [facility] Start: 2001 Sex assigned at Not on file [facility] Functional Status Date Assessment Result Facility 09-19-2024 Total score [AUDIT-C] 2 09/20/19 7:50 AM EDT Mychart, Generic [facility] 09-19-2024 How often to you hav e a drink containing alcohol? Monthly or less 09/19/2024 7:50 AM EDT Mychart, Generic Monthly or less [facility] 09-19-[address] inks containing alcohol do you have on a typical day? 3 or 4 09/19/2024 7:50 AM EDT Mychart, Generic 3 or 4 [facility] 09-19-2024 How often do you hav e 6 or more drinks on 1 occasion? Never 09/19/2024 7:50 AM EDT Mychart, Generic Never [facility] History of Present illness Narrative 09-19-2024 Nura Singleton MD - 09/19/2024 12:15 PM Faraz Singleton MD - 09/19/2024 12:15 PM Faraz Singleton MD - 09/19/2024 12:15 PM Faraz Singleton MD - 09/19/2024 12:15 PM EDT Note Date & Type Note Facility 09-19-2024 History of Presen t illness Narrative Associated Problem(s): Near syncope Works in hot environment and increase fluids. Associated Problem(s): Prediabetes Repeat labs. Associated Problem(s): Insulin resistance Repeat labs. Associated Problem(s): Class 3 severe obesity due to excess calories with serious comorbidity and body mass index (BMI) of 50.0 to 59.9 in adult ([facility]) Try wegovy. Associated Problem(s): Adult hypothyroidism Repeat labs. Images from the original note were not included. Subjective Patient ID: Karma Lozoya is a 24 y.o. female who presents for Follow-up (Er f/u). ER follow up from 08/30 for near syncope. Patient was at work and felt PATE and lightheaded. Developed chest tightness and felt like would pass out. To ER and labs normal other than glucose 121. EKG and CE normal. CT head normal. Discharged home. Doing well since. 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 Interested in weight loss medication. Reports someone at work stated wegovy covered and wants to try. Review of Systems Respiratory: Negative for cough, shortness of breath and wheezing. Cardiovascular: Negative for chest pain and palpitations. Gastrointestinal: Negative for abdominal pain, diarrhea, nausea and vomiting. Genitourinary: Negative for dysuria. Objective Physical Exam Constitutional: General: She is not in acute distress. Appearance: Normal appearance. HENT: Head: Normocephalic. Right Ear: Tympanic membrane normal. Left Ear: Tympanic membrane normal. Eyes: Extraocular Movements: Extraocular movements intact. Pupils: Pupils are equal, round, and reactive to light. Cardiovascular: Rate and Rhythm: Normal rate and regular rhythm. Heart sounds: No murmur heard. No friction rub. No gallop. Pulmonary: Effort: Pulmonary effort is normal. Breath sounds: Normal breath sounds. No wheezing, rhonchi or rales. Abdominal: General: Bowel sounds are normal. There is no distension. Palpations: Abdomen is soft. Tenderness: There is no abdominal tenderness. There is no guarding or rebound. Musculoskeletal: Cervical back: Neck supple. Right lower leg: No edema. Left lower leg: No edema. Neurological: Mental Status: She is alert. Assessment/Plan Problem List Items Addressed This Visit Adult hypothyroidism Repeat labs. Relevant Orders TSH T4, free Class 3 severe obesity due to excess calories with serious comorbidity and body mass index (BMI) of 50.0 to 59.9 in adult ([facility]) Try wegovy. Relevant Medications Semaglutide-Weight Management (Wegovy) 0.25 MG/0.5ML solution auto-injector Insulin resistance Repeat labs. Relevant Medications Semaglutide-Weight Management (Wegovy) 0.25 MG/0.5ML solution auto-injector Other Relevant Orders Insulin, fasting Near syncope - Primary Works in hot environment and increase fluids. Prediabetes Repeat labs. Relevant Medications Semaglutide-Weight Management (Wegovy) 0.25 MG/0.5ML solution auto-injector Other Relevant Orders Hemoglobin A1c Basic metabolic panel documented in this encounter [facility] Evaluation note Note Date & Type Note Facility Evaluation note Diagnosis Generalized anxiety disorder- Primary Generalized anxiety disorder Carpal tunnel syndrome, bilateral Carpal tunnel syndrome Amenorrhea Absence of menstruation Generalized anxiety disorder- Primary Generalized anxiety disorder Insulin resistance Other abnormal glucose Adult hypothyroidism Unspecified hypothyroidism Morbid obesity ([facility]) Morbid obesity Body mass index [BMI] 50.0-59.9, adult (Z68.43) Near syncope- Primary Insulin resistance Other abnormal glucose Prediabetes Other abnormal glucose Class 3 severe obesity due to excess calories with serious comorbidity and body mass index (BMI) of 50.0 to 59.9 in adult ([facility]) Adult hypothyroidism Unspecified hypothyroidism documented in this encounter [facility] Summary Purpose Family History No Family History Records FoundNo Family History Records FoundNo Family History Records FoundNo Family History Records Found Advance Directives No Advanced Directives Records FoundNo Advanced Directives Records FoundNo Advanced Directives Records FoundNo Advanced Directives Records Found Additional Source Comments INFORMATION SOURCE (unrecogn ized section and content) DATE CREATED AUTHOR 04/08/2022 [facility] DATE CREATED AUTHOR AUTHOR'S ORGANIZ ATION 02/19/2024 [facility] DATE CREATED AUTHOR AUTHOR'S ORGANIZ ATION [facility]20[facility] DATE CREATED AUTHOR AUTHOR'S ORGANIZ ATION 09/21/2024 [facility] EPIC Care Teams (unrecognized sec tion and content) Accounts Receivable Assistant Relationship Specialty Start Date End Date Nura Singleton MD [address] [place] [phone] PCP - General Family Medicine 12/02/22 Accounts Receivable Assistant Relationship Specialty Start Date End Date Nura Singleton MD [address] [place] [phone] PCP - General Family Medicine 12/02/22 Reason for Visit (unrecogniz ed section and content) Reason Comments Follow-up Er f/u FOR RECORDS PERTAINING TO PATIENTS WHO ARE [...] BE BASED ON THE PRIMARY CLINICAL RECORDS. [facility] [employer] [facility]. provides no warranty or guarantee of the accuracy or completeness of information in this document.
[2024-10-06 16:03] LABS: Anion Gap 9.3; Blood Urea Nitrogen 16.0 mg/dL (7.0-18.0); Calcium 9.2 mg/dL (8.5-10.1); Carbon Dioxide 31.6 mmol/L (21.0-32.0); Chloride 106 mmol/L (98-107); Estimated GFR (African America >60 (>=60 mL/min/1.73m^2); Estimated GFR (Non-African Ame >60 (>=60 mL/min/1.73m^2); Glucose 97 mg/dL (74-106); Potassium 3.9 mmol/L (3.5-5.1); Sodium 143 mmol/L (136-145); Thyroid Stimulating Hormone 3.691 uIU/mL (0.358-3.740)
== END 2024-10-06 15:19 | disposition home or self-care (01) ==
PROVIDERS: PCP Family Medicine; Visit Provider Family Medicine
DX: E88.819 Insulin resistance, unspecified (principal); E03.9 Hypothyroidism, unspecified
CPT/HCPCS: 36415; 80048; 83036; 83525; 84439; 84443